=== PATIENT | male | born 1985 | race Caucasian/White ===

== ENCOUNTER 2018-04-08 11:53 | Emergency (ER) | payer OTHER, SELFPAY ==
[2018-04-08] MEDS: ASPIRIN 81 MG TAB 324 MG PO (12:05)
[2018-04-08 12:06] VITALS: BP 125/51; PULSE 56; RESP 18; TEMP 35.8; O2SAT 100
--- NOTE | 2018-04-08 12:07 | DI.RAD.S_ITS ---
PROCEDURE: XR CHEST 1V INDICATIONS: chest pain TECHNIQUE: One view of the chest was acquired. COMPARISON: None. FINDINGS: Surgical changes and devices: None. Lungs and pleura: Ill-defined air space opacity in medial aspect of right upper lung field is seen suspicious for right upper lobe infiltrate. Mild pulmonary vascular congestion is also noted. No pleural effusion or pneumothorax. Mediastinum: Mediastinal contours appear normal. Heart size is enlarged. Bones and chest wall: No suspicious bony lesions. Overlying soft tissues appear unremarkable. IMPRESSION: Finding is suggestive of small right upper lobe infiltrate and mild pulmonary vascular congestion. No pleural effusion or pneumothorax. Dictated by: Osito Webber M.D. on 04/08/2018 at 12:21 Approved by: Osito Webber M.D. on 04/08/2018 at 12:25
--- NOTE | 2018-04-08 12:10 | ED.CHESTPAIN ---
HPI - Chest Pain General Chief Complaint: Chest Pain Stated Complaint: Dizziness Time Seen by Provider: 04/08/18 12:07 Source: patient Mode of arrival: ambulatory Limitations: no limitations History of Present Illness HPI narrative: This is a 32-year-old male who comes to the emergency department with complaint of chest pain that started 45 min prior to arrival while he was sitting at a desk doing paperwork. Patient states he feels short of breath, he feels sweaty. He feels nauseated. Patient has not had similar symptoms in the past he also felt quite dizzy when it started. He was seen at the refinery and they thought he seemed a little off. The refinery sent him by private auto. Related Data Allergies Allergy/AdvReac Type Severity Reaction Status Date / Time No Known Drug Allergies Allergy Verified 04/08/18 12:06 Review of Systems Review of Systems All systems reviewed & are unremarkable except as noted in HPI and below Constitutional Reports malaise Cardiovascular Reports chest pain, Reports chest pain with activity, Denies syncope, Reports lightheadedness and Reports dyspnea Respiratory Reports dyspnea Gastrointestinal Gastrointestinal: Reports nausea Musculoskeletal Denies back pain Neurologic Denies syncope Exam Initial Vital Signs Initial Vital Signs: Vital Signs Temperature 96.4 F L 04/08/18 12:06 Pulse Rate 56 L 04/08/18 12:06 Respiratory Rate 18 04/08/18 12:06 Blood Pressure 125/51 L 04/08/18 12:06 Pulse Oximetry 100 04/08/18 12:06 GENERAL: Alert and oriented x three, well-nourished male in moderate distress. Patient appears pale and slightly diaphoretic. HEENT: Head normocephalic, atraumatic, EOMI, pupils reactive, face symmetric, moist mucous membranes NECK: Supple, full range of motion CARDIOVASCULAR: Bradycardiac, rate and rhythm without murmurs, rubs or gallops. RESPIRATORY: Breath sounds equal bilaterally, no wheezes rales or rhonchi. ABDOMEN: Soft, nontender. Normoactive bowel sounds all 4 quadrants. No guarding or rebound, rigidity, no mass, no bruit or pulsatile mass. : No CVA tenderness EXTREMITIES: Normal range of motion, no clubbing or edema. Neurovascularly intact NEUROLOGICAL: Cranial nerves II through XII grossly intact. Moving all extremities SKIN: Warm, dry, no petechiae, no rashes or lesions. Course Orders Ordered: ED Orders 04/08/18 12:01 EKG-12 Lead Stat 04/08/18 12:07 XR chest 1V Stat Discontinued Medications Aspirin (Aspirin Chew) 324 mg PO NOW ONE Stop: 04/08/18 12:08 Last Admin: 04/08/18 12:05 Dose: 324 mg Heparin Sodium (Porcine) (Heparin) 5,000 unit IV NOW ONE Stop: 04/08/18 12:08 Last Admin: 04/08/18 12:12 Dose: 5,000 unit Sodium Chloride (Normal Saline 0.9%) 1,000 mls @ 150 mls/hr IV CONT RYAN Last Admin: 04/08/18 12:53 Dose: Nitroglycerin (Nitrostat) 0.4 mg SL [id number] PRN PRN Reason: Chest Pain Last Admin: 04/08/18 12:15 Dose: 0.4 mg Vital Signs - 8 hr 04/08/18 12:06 04/08/18 12:15 Temperature 96.4 F L Pulse Rate 56 L 49 L Respiratory Rate 18 22 Blood Pressure 125/51 L 108/70 Blood Pressure [Left Arm] 108/77 Pulse Oximetry 100 100 MDM - Chest Pain Lab Data blood was not obtained prior to transfer. Imaging Data Chest x-ray: Attestation: I personally reviewed and interpreted this imaging study as follows: My impression: A patient has no mediastinal widening noted. Radiologist's impression: [place] [address] XRay Report Signed Patient: Chas Wadsworth#: [id number] : 1985Acct:[id number] Age/Sex: 32 / MDate of Service: 04/08/18 Loc: ED Accession Number: [id number] Procedure: XR chest 1V Ordering Provider: Ramona Chatterjee D.O. PROCEDURE: XR CHEST 1V INDICATIONS: chest pain TECHNIQUE: One view of the chest was acquired. COMPARISON: None. FINDINGS: Surgical changes and devices: None. Lungs and pleura: Ill-defined air space opacity in medial aspect of right upper lung field is seen suspicious for right upper lobe infiltrate. Mild pulmonary vascular congestion is also noted. No pleural effusion or pneumothorax. Mediastinum: Mediastinal contours appear normal. Heart size is enlarged. Bones and chest wall: No suspicious bony lesions. Overlying soft tissues appear unremarkable. IMPRESSION: Finding is suggestive of small right upper lobe infiltrate and mild pulmonary vascular congestion. No pleural effusion or pneumothorax. Dictated by: Osito Webber M.D. on 04/08/2018 at 12:21 Approved by: Osito Webber M.D. on 04/08/2018 at 12:25 ECG Data Attestation: I personally reviewed and interpreted this ECG as follows: Interpretation: Sinus bradycardia with sinus arrhythmia first-degree AV block with a rate of 45 P are of 238 QRS of 94 and QTC of 433. ST elevation 2 3 and AVF with depression in 1 and aVL MDM Narrative Medical decision making narrative: Spoke with Dr. Posadas at [facility] who accepts for transport. EKG faxed prior to patient transport. Patient given aspirin 324 mg, heparin bolus of 5000 units given. Nitro sublingual given patient states his chest pain is improving. Patient denies any prior family history or medical issues in the past. He denies any known medical problems. Chest x-ray does not show any mediastinal widening is appreciate so decreases my suspicion for a dissection or aneurysm. Patient transported for [place]. Critical Care Time Critical Care Time: Yes Total Critical Care Time: 30 Attestation: The high probability of a clinically significant, sudden or life threatening deterioration of the [cardiac] system(s) required my full and direct attention, intervention and personal management. The aggregate critical care time was [30] minutes. This time is in addition to time spent performing reported procedures but includes the following: [x] Data Review and interpretation [x] Patient assessment and monitoring of vital signs [x] Documentation [x] Medication orders and management Discharge Plan Departure Patient Disposition: [facility] Clinical Impression: ST elevation (STEMI) myocardial infarction Discharge Date/Time: 04/08/18 12:15 Interventions: ED Discharge Assessment Last Done: 04/08/18 12:15
[2018-04-08] MEDS: HEPARIN 5,000 UNIT/ML VIAL 5000 UNIT IV (12:12)
[2018-04-08 12:15] VITALS: BP 108/70; BP 108/77; PULSE 49; PULSE 56; RESP 22; O2SAT 100
[2018-04-08] MEDS: NITROGLYCERIN 0.4 MG SL TAB SL (12:15)
--- NOTE | 2018-04-08 12:16 | ED_ITS ---
HPI - Chest Pain General Chief Complaint: Chest Pain Stated Complaint: Dizziness Time Seen by Provider: 04/08/18 12:07 Source: patient Mode of arrival: ambulatory Limitations: no limitations History of Present Illness HPI narrative: This is a 32-year-old male who comes to the emergency department with complaint of chest pain that started 45 min prior to arrival while he was sitting at a desk doing paperwork. Patient states he feels short of breath, he feels sweaty. He feels nauseated. Patient has not had similar symptoms in the past he also felt quite dizzy when it started. He was seen at the refinery and they thought he seemed a little off. The refinery sent him by private auto. Related Data Allergies Allergy/AdvReac Type Severity Reaction Status Date / Time No Known Drug Allergies Allergy Verified 04/08/18 12:06 Review of Systems Review of Systems All systems reviewed & are unremarkable except as noted in HPI and below Constitutional Reports malaise Cardiovascular Reports chest pain, Reports chest pain with activity, Denies syncope, Reports lightheadedness and Reports dyspnea Respiratory Reports dyspnea Gastrointestinal Gastrointestinal: Reports nausea Musculoskeletal Denies back pain Neurologic Denies syncope Exam Initial Vital Signs Initial Vital Signs: Vital Signs Temperature 96.4 F L 04/08/18 12:06 Pulse Rate 56 L 04/08/18 12:06 Respiratory Rate 18 04/08/18 12:06 Blood Pressure 125/51 L 04/08/18 12:06 Pulse Oximetry 100 04/08/18 12:06 GENERAL: Alert and oriented x three, well-nourished male in moderate distress. Patient appears pale and slightly diaphoretic. HEENT: Head normocephalic, atraumatic, EOMI, pupils reactive, face symmetric, moist mucous membranes NECK: Supple, full range of motion CARDIOVASCULAR: Bradycardiac, rate and rhythm without murmurs, rubs or gallops. RESPIRATORY: Breath sounds equal bilaterally, no wheezes rales or rhonchi. ABDOMEN: Soft, nontender. Normoactive bowel sounds all 4 quadrants. No guarding or rebound, rigidity, no mass, no bruit or pulsatile mass. : No CVA tenderness EXTREMITIES: Normal range of motion, no clubbing or edema. Neurovascularly intact NEUROLOGICAL: Cranial nerves II through XII grossly intact. Moving all extremities SKIN: Warm, dry, no petechiae, no rashes or lesions. Course Orders Ordered: ED Orders 04/08/18 12:01 EKG-12 Lead Stat 04/08/18 12:07 XR chest 1V Stat Discontinued Medications Aspirin (Aspirin Chew) 324 mg PO NOW ONE Stop: 04/08/18 12:08 Last Admin: 04/08/18 12:05 Dose: 324 mg Heparin Sodium (Porcine) (Heparin) 5,000 unit IV NOW ONE Stop: 04/08/18 12:08 Last Admin: 04/08/18 12:12 Dose: 5,000 unit Sodium Chloride (Normal Saline 0.9%) 1,000 mls @ 150 mls/hr IV CONT RYAN Last Admin: 04/08/18 12:53 Dose: Nitroglycerin (Nitrostat) 0.4 mg SL [id number] PRN PRN Reason: Chest Pain Last Admin: 04/08/18 12:15 Dose: 0.4 mg Vital Signs - 8 hr 04/08/18 12:06 04/08/18 12:15 Temperature 96.4 F L Pulse Rate 56 L 49 L Respiratory Rate 18 22 Blood Pressure 125/51 L 108/70 Blood Pressure [Left Arm] 108/77 Pulse Oximetry 100 100 MDM - Chest Pain Lab Data blood was not obtained prior to transfer. Imaging Data Chest x-ray: Attestation: I personally reviewed and interpreted this imaging study as follows: My impression: A patient has no mediastinal widening noted. Radiologist's impression: [place] [address] XRay Report Signed Patient: Chas Wadsworth#: [id number] : 1985Acct:[id number] Age/Sex: 32 / MDate of Service: 04/08/18 Loc: ED Accession Number: [id number] Procedure: XR chest 1V Ordering Provider: Ramona Chatterjee D.O. PROCEDURE: XR CHEST 1V INDICATIONS: chest pain TECHNIQUE: One view of the chest was acquired. COMPARISON: None. FINDINGS: Surgical changes and devices: None. Lungs and pleura: Ill-defined air space opacity in medial aspect of right upper lung field is seen suspicious for right upper lobe infiltrate. Mild pulmonary vascular congestion is also noted. No pleural effusion or pneumothorax. Mediastinum: Mediastinal contours appear normal. Heart size is enlarged. Bones and chest wall: No suspicious bony lesions. Overlying soft tissues appear unremarkable. IMPRESSION: Finding is suggestive of small right upper lobe infiltrate and mild pulmonary vascular congestion. No pleural effusion or pneumothorax. Dictated by: Osito Webber M.D. on 04/08/2018 at 12:21 Approved by: Osito Webber M.D. on 04/08/2018 at 12:25 ECG Data Attestation: I personally reviewed and interpreted this ECG as follows: Interpretation: Sinus bradycardia with sinus arrhythmia first-degree AV block with a rate of 45 P are of 238 QRS of 94 and QTC of 433. ST elevation 2 3 and AVF with depression in 1 and aVL MDM Narrative Medical decision making narrative: Spoke with Dr. Posadas at [facility] who accepts for transport. EKG faxed prior to patient transport. Patient given aspirin 324 mg, heparin bolus of 5000 units given. Nitro sublingual given patient states his chest pain is improving. Patient denies any prior family history or medical issues in the past. He denies any known medical problems. Chest x-ray does not show any mediastinal widening is appreciate so decreases my suspicion for a dissection or aneurysm. Patient transported for [place]. Critical Care Time Critical Care Time: Yes Total Critical Care Time: 30 Attestation: The high probability of a clinically significant, sudden or life threatening deterioration of the [cardiac] system(s) required my full and direct attention, intervention and personal management. The aggregate critical care time was [30] minutes. This time is in addition to time spent performing reported procedures but includes the following: [x] Data Review and interpretation [x] Patient assessment and monitoring of vital signs [x] Documentation [x] Medication orders and management Discharge Plan Departure Patient Disposition: [facility] Clinical Impression: ST elevation (STEMI) myocardial infarction Discharge Date/Time: 04/08/18 12:15 Interventions: ED Discharge Assessment Last Done: 04/08/18 12:15
== END 2018-04-08 12:15 | disposition short-term general hospital (02) ==
PROVIDERS: Emergency Provider Emergency Medicine
DX: I21.3 ST elevation (STEMI) myocardial infarction of unspecified site (principal)
CPT/HCPCS: 71045; 93005; 93010; 96374; 99283; 99284; J1644